=== PATIENT | female | born 1960 | race Caucasian/White ===

== ENCOUNTER 2025-03-04 09:25 | Day surgery (SDC) | payer OTHER ==
[~2025-03-04] VITALS: Ht 170.2 cm; Wt 74.0 kg
[~2025-03-04 09:25] MED LIST: IBLOOD GLUCOSE TEST STRIP 1 EA TEST VI PRN; LACTATED RINGER'S 1,000 ML IV SCH; LIDOCAINE HCL 1% 5 ML SDV INJ ONE; LIDOCAINE HCL 2% 5 ML SDV ONE
[2025-03-04 09:43] VITALS: BP 151/79
--- NOTE | 2025-03-04 11:24 | NUR ---
03/04/25 1124 Elisa Triplett 1118: PT ARRIVES TO PACU NON AROUSAL. REPORT RECEIVED FROM RECLAMATION WORKER AND ELECTRIC RANGE PREPARER.
[2025-03-04 11:43] VITALS: BP 133/81
--- NOTE | 2025-03-06 12:43 | PATH ---
[facility] [address] [facility] [place], [place] [address] Signed SPECIMEN(S): A COLON POLYP, 15 CM SPECIMEN(S): B RECTAL POLYP, 5 CM SPECIMEN(S): C RECTAL POLYP, 2 CM SPECIMEN(S): D COLON POLYP, 16 CM SPECIMEN(S): E COLON POLYP, 19 CM SPECIMEN(S): F COLON POLYP, 18 CM SPECIMEN(S): G COLON POLYP, 11 CM SPECIMEN(S): H COLON POLYP, 10 CM SPECIMEN SOURCE: A. COLON POLYP, 15 CM B. RECTAL POLYP, 5 CM C. RECTAL POLYP, 2 CM D. COLON POLYP, 16 CM E. COLON POLYP, 19 CM F. COLON POLYP, 18 CM G. COLON POLYP, 11 CM H. COLON POLYP, 10 CM CLINICAL HISTORY: Preop-positive Cologuard. Postop-polyps A-H) polyp FINAL PATHOLOGIC DIAGNOSIS: A. Colon polyp, 15 cm: - Rectal prolapse polyp, negative for dysplasia. B. Rectal polyp, 5 cm - Hyperplastic polyp, negative for dysplasia. C. Rectal polyp, 2 cm - Rectal prolapse polyp, negative for dysplasia. D. Colon polyp, 16 cm - Hyperplastic polyp, negative for dysplasia. E. Colon polyp, 19 cm - Hyperplastic polyp, negative for dysplasia. F. Colon polyp, 18 cm - Hyperplastic polyp, negative for dysplasia. G. Colon polyp, 11 cm - Hyperplastic polyp, negative for dysplasia. H. Colon polyp, 10 cm - Hyperplastic polyp, negative for dysplasia. NA PATIENT NAME: MARLENA ROJAS PATHOLOGY DATE OF : 56 REPORT #: [id number] PHYSICIAN: BRUNO FLORES PCP: LIV HERRERA MD REPORT IS CONFIDENTIAL AND NOT TO BE RELEASED WITHOUT AUTHORIZATION [facility] [address] [place], [place] [address] Signed MICROSCOPIC EXAMINATION: Histologic sections of all submitted blocks are examined by light microscopy. These findings, together with the gross examination, support the pathologic diagnosis. GROSS DESCRIPTION: A. The specimen, labeled and designated "Jose Alfredo, colon polyp, 15 cm," is received in formalin and consists of four drummond soft tissue fragments, ranging from 0.3-0.7 cm. Entirely submitted in (A1). B. The specimen, labeled and designated "Jose Alfredo, rectal polyp, 5 cm," is received in formalin and consists of two drummond soft tissue fragments, ranging from 0.1-0.3 cm. Entirely submitted in (B1). C. The specimen, labeled and designated "Jose Alfredo, rectal polyp, 2 cm," is received in formalin and consists of three drummond soft tissue fragments, ranging from 0.1-0.3 cm. Entirely submitted in (C1). D. The specimen, labeled and designated "Jose Alfredo, colon polyp, 16 cm," is received in formalin and consists of one drummond soft tissue fragment, 0.2 cm. Entirely submitted in (D1). E. The specimen, labeled and designated "Jose Alfredo, colon polyp, 19 cm," is received in formalin and consists of one drummond soft tissue fragment, 0.2 cm. Entirely submitted in (E1). F. The specimen, labeled and designated "Jose Alfredo, colon polyp, 18 cm," is received in formalin and consists of two drummond soft tissue fragments, ranging from 0.2-0.6 cm. Entirely submitted in (F1). G. The specimen, labeled and designated "Jose Alfredo, colon polyp, 11 cm," is received in formalin and consists of five drummond soft tissue fragments, ranging from 0.1-0.3 cm. Entirely submitted in (G1). H. The specimen, labeled and designated "Jose Alfredo, colon polyp, 10 cm," is received in formalin and consists of two drummond soft tissue fragments, ranging from 0.2-0.3 cm. Entirely submitted in (H1). AB (under the direct supervision of a pathologist) The Gross Description was prepared using a voice recognition system. The report was reviewed for accuracy; however, sound-alike word errors, addition and/or deletions may occur. If there is any question about this report, please contact Client Services. ADDITIONAL NOTES: Immunohistochemical and/or in situ hybridization studies if performed in this case included appropriate positive controls that reacted as expected. This test was developed and its performance PATIENT NAME: MARLENA ROJAS PATHOLOGY DATE OF : 56 REPORT #: [id number] PHYSICIAN: BRUNO PATHOLOGY PCP: LIV HERRERA MD REPORT IS CONFIDENTIAL AND NOT TO BE RELEASED WITHOUT AUTHORIZATION [address] [address] Signed characteristics determined by [facility]. It has not been cleared or approved by the U.S. Food and Drug Administration. The FDA has determined that such clearance or approval is not necessary. This test is used for clinical purposes. It should not be regarded as investigational or for research. [facility] is certified under the Clinical Laboratory Improvement Amendments of 1988 (CLIA) as qualified to perform high complexity clinical laboratory testing. PERFORMING LABORATORY: Technical [place] [address] (CLIA# [id number]). Professional interpretation was performed by [facility], [address] [place] [address] (CLIA#: [id number]). Diagnostician: Rasta Ott MD Pathologist Electronically Signed 03/06/2025 Copies: ~ PATIENT NAME: MARLENA ROJAS PATHOLOGY DATE OF : 56 REPORT #: [id number] PHYSICIAN: BRUNO FLORES PCP: LIV HERRERA MD REPORT IS CONFIDENTIAL AND NOT TO BE RELEASED WITHOUT AUTHORIZATION
== END 2025-03-04 11:57 | disposition home or self-care (01) ==
LOC: DS 09:25 → OPS 09:25 → DS 11:00 → OPS 11:00
PROVIDERS: ATTEND Surgery
PROC: 0DBE8ZX Excision of Large Intestine, Via Natural or Artificial Opening Endoscopic, Diagnostic (ICD-10-PCS; principal; 2025-03-04 10:20)
DX: R19.5 Other fecal abnormalities (principal); K63.5 Polyp of colon; I10 Essential (primary) hypertension; E78.5 Hyperlipidemia, unspecified; Z79.899 Other long term (current) drug therapy
CPT/HCPCS: 00811; 77065; 88305; J2003; J2704; J7121

== ENCOUNTER 2025-03-24 06:51 | Day surgery (SDC) | payer OTHER ==
[~2025-03-24] VITALS: Ht 170.2 cm; Wt 74.0 kg
[~2025-03-24 06:51] MED LIST changes: -IBLOOD GLUCOSE TEST STRIP 1 EA TEST VI PRN; -LIDOCAINE HCL 1% 5 ML SDV INJ ONE; -LIDOCAINE HCL 2% 5 ML SDV ONE
[2025-03-24] MEDS ORDERED: CEFAZOLIN SODIUM 2 GM in SODIUM CHLORIDE 0.9% 100 ML IV SCH (07:00)
[2025-03-24] MEDS ORDERED: LIDOCAINE HCL 1% 5 ML SDV INJ ONE (07:00)
[2025-03-24] MEDS ORDERED: IBLOOD GLUCOSE TEST STRIP 1 EA TEST VI PRN ×2 (07:00→10:00)
[2025-03-24] MEDS ORDERED: HEParin SOD (PORCINE) 5,000 UNIT/ML SDV SUB-Q SCH (07:00)
[2025-03-24 07:11] VITALS: BP 155/79
[2025-03-24] MEDS ORDERED: Methylene Blue 100 MG/10 ML SDV ONE (08:43)
[2025-03-24] MEDS ORDERED: fentaNYL citrate 100 MCG/2 ML VIAL ONE ×2 (08:44→09:52)
[2025-03-24] MEDS ORDERED: LIDOCAINE HCL 2% 5 ML SDV ONE (08:47)
[2025-03-24] MEDS ORDERED: DEXAMETHASONE SOD PHOS 4 MG/ML VIAL ONE (09:20)
[2025-03-24] MEDS ORDERED: ACETAMINOPHEN 1,000 MG/100 ML VIAL ONE (09:23)
[2025-03-24] MEDS ORDERED: HYDROmorphone HCL 1 MG/ML SYR IV PRN (10:00)
[2025-03-24] MEDS ORDERED: NALOXONE HCL 0.4 MG SYR IV PRN ×2 (10:00→11:00)
[2025-03-24] MEDS ORDERED: fentaNYL citrate 50 MCG/ML SDV IV PRN (10:00)
[2025-03-24] MEDS ORDERED: KETOROLAC TROMETHAMINE 30 MG/ML VIAL ONE (10:33)
--- NOTE | 2025-03-24 10:43 | NUR ---
03/24/25 1043 Elisa Triplett 1034: PT ARRIVES TO PACU NON REACTIVE. REPORT RECEIVED FROM FIELD ARTILLERY RADAR OPERATOR AND COUPON COLLECTION CLERK.
[2025-03-24] MEDS ORDERED: IBUPROFEN600 MG PO (10:57)
[2025-03-24] MEDS ORDERED: OXYCODON-ACETA1 EAC2 PO (10:57)
[2025-03-24] MEDS ORDERED: ACETAMINOPHEN500 MG PO (10:58)
[2025-03-24] MEDS ORDERED: IBUPROFEN 600 MG TAB PO PRN (11:00)
[2025-03-24] MEDS ORDERED: OXYCODONE/APAP 7.5/325 TAB PO PRN (11:00)
[2025-03-24] MEDS ORDERED: ACETAMINOPHEN 500 MG TAB PO PRN (11:00)
[2025-03-24] MEDS ORDERED: LACTATED RINGER'S 1,000 ML IV SCH (11:00)
[2025-03-24 11:10] VITALS: BP 131/75
[2025-03-24] MEDS ORDERED: SEVOFLURANE 250 ML BTL INH ONE (11:20)
--- NOTE | 2025-03-24 11:57 | NUR ---
CLARE 1110-PT BACK TO ROOM FROM PACU ON . RECEIVED REPORT FROM TOMMIE GARZA. PT IS AWAKE. RESP EVEN AND UNLABORED. RATES PAIN 4/10. DENIES NAUSEA. PT DRINKING WATER. JELLO PROVIDED. NO OTHER NEEDS AT THIS TIME. CALL LIGHT WITHIN REACH.
--- NOTE | 2025-03-24 11:59 | NUR ---
1150-PT AMBULATES TO RESTROOM. PT ABLE TO VOID.
--- NOTE | 2025-03-24 12:01 | NUR ---
1154-PT BACK TO BED. RATES PAIN 3/10 AND WOULD LIKE SOMETHING BEFORE GOING HOME. PAIN MEDICATION GIVEN PER EMAR.
[2025-03-24 12:14] VITALS: BP 137/81
--- NOTE | 2025-03-24 13:15 | NUR ---
CLARE 1215-PT LAYING IN BED. RESP EVEN AND UNLABORED. PT STATES PAIN IS MUCH BETTER. DENIES NAUSEA. PT TAKING SIPS OF WATER. PT IS READY TO GO HOME. PT WILL GET DRESSED. IN ROOM. CALL LIGHT WITHIN REACH.
--- NOTE | 2025-03-24 13:16 | NUR ---
LE 1222-WENT OVER DISCHARGE INSTRUCTIONS WITH PT. WENT OVER POSTOP MEDICATIONS. ALL QUESTIONS ANSWERED. LE 1226-PT AMBULATES TO WHEELCHAIR AND RIDE PROVIDED TO FRONT OF HOSPITAL WHERE HER WAS WAITING WITH THE CAR.
--- NOTE | 2025-03-25 14:52 | OR ---
[facility] [address] [place], [place] [address] Signed DATE OF OPERATION: 03/24/2025 SURGEON: Elizabeth Bo MD PREOPERATIVE DIAGNOSIS: Right upper outer quadrant infiltrating ductal breast carcinoma, ER/AZ positive, HER-2/saba negative, moderately differentiated. POSTOPERATIVE DIAGNOSIS: Right upper outer quadrant infiltrating ductal breast carcinoma, ER/AZ positive, HER-2/saba negative, moderately differentiated. PROCEDURES: 1. Injection of methylene blue dye for sentinel lymph node identification, right breast. 2. Right deep axillary sentinel lymph node biopsy (x3). 3. Right partial mastectomy with NATI yard laborer localization. ANESTHESIA: General LMA, Leonardo Lebron CRNA and local 7 mL of 0.25% Marcaine with epinephrine. INDICATION: This 64-year-old white woman is a patient of Aurora Herrera. The patient lives in [place], [place]. She is identified as having an abnormality of her right breast in the upper outer aspect. Further evaluation including biopsies showed infiltrating ductal breast carcinoma, ER/AZ positive, HER-2/saba negative. It is moderately differentiated. It is nonpalpable. She is admitted at this time to undergo definitive treatment to include right partial mastectomy by NATI yard laborer localization and right sentinel lymph node biopsies to better guide therapy. The risk of bleeding, infection, cosmetic deformity, and other unforeseen complications were reviewed in detail. She understands and wished to proceed. FINDINGS: Good localization was noted with the NATI yard laborer device. The lesion was in the upper outer aspect. Wide resection was undertaken using the NATI yard laborer technique and the excised specimen had the NATI yard laborer implement as well as the localizing clip in the center portion of the excised specimen according to the radiologist. Good cosmesis was noted following wide resection with parenchymal reapproximation. Note that the biopsy cavity was secured with clips for guidance of radiation therapy in the future. As regards to the right axilla, uptake of blue dye was noted in the initial sentinel Electronically Signed By: ELIZABETH BO MD 03/25/25 1452 PATIENT NAME: MARLENA ROJAS OPERATIVE REPORT DATE OF : 56 REPORT #: [id number] PHYSICIAN: ELIZABETH BO MD PCP: AURORA HERRERA MD REPORT IS CONFIDENTIAL AND NOT TO BE RELEASED WITHOUT AUTHORIZATION [facility] [address] [place] [id number] Signed lymph node in addition to radionuclide and two other radionuclide avid small lymph nodes were also identified. A total of three sentinel nodes were excised. None of them appeared suspicious. DESCRIPTION OF PROCEDURE: The patient was taken to the operating room after affirming the NATI yard laborer device was working well in localizing the lesion in the right upper aspect of the breast. She was given a general LMA type anesthetic. Preoperative antibiotic Ancef was given and sequential compression device stockings were used. Injection of 1 mL of 50% methylene blue dye was undertaken in the upper outer aspect of the right breast showing typical lymphatic uptake. The breast, chest, and axilla was then prepared with a chlorhexidine solution and draped sterilely. The NATI yard laborer probe as well as the C-Trak radionuclide probe were covered with the respective sterile sheaths. Attention was turned to the axilla first. An area of high radioactivity uptake was identified in the axilla and a small transverse incision was made there. Using cautery, the parenchyma and dermis were divided down into the area of the axillary fat. Meticulous dissection identified promptly a blue lymph node with the radionuclide uptake having used the probe to better localize the lymph node. This was dissected free and small clips were applied and it was removed and passed the sentinel lymph node #1. Two additional lymph nodes were identified in a similar way, though neither took up too much dye, but certainly took up radionuclide. The remaining axilla was relatively silent and showed no sign of methylene blue uptake elsewhere. The wound of the axilla was then packed with laparotomy pack. Attention was turned towards the breast itself. The localizing NATI yard laborer probe showed the lesion to be in the upper outer aspect. It was not near enough to breast crease of the axilla to take advantage of that approach for resection nor was it close enough to the areolar margin to reasonably expect it to be excised there very well. On that basis, the incision was centered directly over the upper outer aspect of the right breast. Dissection was carried through the skin sharply and with electrocautery the dermis was divided. Wide resection was undertaken with electrocautery using the NATI yard laborer probe as a guide. Special care was taken to make the excision wide around the focus of the NATI yard laborer signal. Excision was taken down to the pectoralis fascia essentially. Once excised, the specimen was oriented with a stitch superiorly, which was short and a long stitch laterally. Irrigation was undertaken in the breast cavity with sterile water showing no untoward bleeding. Clips were used to jose the excision site for radiation therapy. The parenchyma was reapproximated with interrupted 2-0 Vicryl with reasonable cosmesis. The deep dermal layer was similarly reapproximated with 2-0 Vicryl and a running subcuticular 3-0 Vicryl was used for the skin. Steri-Strips were applied. Examination of the axilla showed it to be hemostatic. By this point, the specimen radiograph confirmed that the NATI yard laborer and the tumor marker were noted to be in the central portion of the excised specimen. The skin was closed in Electronically Signed By: ELIZABETH BO MD 03/25/25 1452 PATIENT NAME: MARLENA ROJAS OPERATIVE REPORT DATE OF : 56 REPORT #: [id number] PHYSICIAN: ELIZABETH BO MD PCP: AURORA HERRERA MD REPORT IS CONFIDENTIAL AND NOT TO BE RELEASED WITHOUT AUTHORIZATION [facility] [address] [place], [place] [address] Signed the axilla with a running 3-0 Vicryl and Steri-Strips were applied to both wounds and Acticoat dressings applied as well. She was ultimately extubated and transferred to the recovery room in good condition having suffered no complication. Total blood loss was less than 20 mL in aggregate. Sponge, needle, and instrument counts reported as correct x3. MD REGGIE Venegas/ELANAL /[id number] cc: Aurora Herrera MD [place] Copies: ~ Electronically Signed By: ELIZABETH BO MD 03/25/25 1452 PATIENT NAME: MARLENA ROJAS OPERATIVE REPORT DATE OF : 56 REPORT #: [id number] PHYSICIAN: ELIZABETH BO MD PCP: AURORA HERRERA MD REPORT IS CONFIDENTIAL AND NOT TO BE RELEASED WITHOUT AUTHORIZATION
--- NOTE | 2025-03-27 14:56 | PATH ---
[facility] [address] [facility] [place], [place] [address] Signed SPECIMEN(S): A RIGHT AXILLA SENTINEL LYMPH NODE #1 SPECIMEN(S): B RIGHT AXILLA SENTINEL LYMPH NODE #2 SPECIMEN(S): C RIGHT AXILLA SENTINEL LYMPH NODE #3 SPECIMEN(S): D RIGHT BREAST SPECIMEN SOURCE: A. RIGHT AXILLA SENTINEL LYMPH NODE #1 B. RIGHT AXILLA SENTINEL LYMPH NODE #2 C. RIGHT AXILLA SENTINEL LYMPH NODE #3 D. RIGHT BREAST CLINICAL HISTORY: Cancer of overlapping breast sites, right upper outer quadrant breast ca FINAL PATHOLOGIC DIAGNOSIS: A. [place] lymph node #1, right axilla per requisition: - One lymph node negative for metastatic carcinoma (0/1). B. [place] lymph node #2, right axilla per requisition: - Benign adipose and fibrovascular tissue, negative for lymph node or metastatic carcinoma. C. [place] lymph node #3, right axilla per requisition: - One lymph node, negative for metastatic carcinoma (0/1). D. Right breast, lumpectomy: - Invasive carcinoma of no special type (ductal). - See checklist. INVASIVE CARCINOMA OF THE BREAST: Resection Applies To: Specimens A-D. SPECIMEN Procedure: Excision (less than total mastectomy) Specimen Laterality: Right TUMOR Histologic Type: Invasive carcinoma of no special type (ductal) Glandular (Acinar) / Tubular Differentiation: Score 2 Nuclear Pleomorphism: Score 2 Mitotic Rate: Score 1 Overall Grade: Grade 1 (scores of 3, 4 or 5) Tumor Size: Greatest dimension of largest invasive focus (Millimeters) - 12 x 11 x 7 mm Ductal Carcinoma In Situ (DCIS): Present Size (Extent) of DCIS: Estimated size (extent) of DCIS is at least PATIENT NAME: MARLENA VELIZ PATHOLOGY DATE OF : 56 REPORT #: [id number] PHYSICIAN: BRUNO PATHOLOGY PCP: LIV HERRERA MD REPORT IS CONFIDENTIAL AND NOT TO BE RELEASED WITHOUT AUTHORIZATION [facility] [address] [place], [place] [address] Signed (Millimeters) - 8 x 6 x 4 mm Architectural Patterns: Cribriform Nuclear Grade: Grade II (intermediate) Necrosis: Not identified Lymphatic and / or Vascular Invasion: Not identified Treatment Effect in the Breast: No known presurgical therapy MARGINS Margin Status for Invasive Carcinoma: All margins negative for invasive carcinoma Distance from Invasive Carcinoma to Closest Margin: 7 mm Closest Margin(s) to Invasive Carcinoma: Anterior Margin Status for DCIS: All margins negative for DCIS Distance from DCIS to Closest Margin: 7 mm Closest Margin(s) to DCIS: Anterior REGIONAL LYMPH NODES Regional Lymph Node Status: All regional lymph nodes negative for tumor Total Number of Lymph Nodes Examined (sentinel and non-sentinel): 2 Number of [place] Nodes Examined: 2 pTNM CLASSIFICATION (AJCC 8th Edition) pT Category: pT1c pN Category: pN0 N Suffix: (sn) ADDITIONAL FINDINGS Additional Findings: Biopsy site changes with radiographic marking clip. Fibrocystic changes with apocrine metaplasia. Breast Biomarker Testing Performed on Previous Biopsy: Estrogen Receptor (ER) Status: Positive (greater than 10% of cells demonstrate nuclear positivity) Progesterone Receptor (PgR) Status: Positive HER2 (by immunohistochemistry): Equivocal (Score 2+) HER2 (by in situ hybridization): Negative (not amplified) Testing Performed on Case Number: [id number] JOHNNY MICROSCOPIC EXAMINATION: Histologic sections of all submitted blocks are examined by light microscopy. These findings, together with the gross examination, support the pathologic diagnosis. GROSS DESCRIPTION: A. The specimen, labeled and designated "Sherice Veliz, sentinel lymph node #1, PATIENT NAME: MARLENA VELIZ PATHOLOGY DATE OF : 56 REPORT #: [id number] PHYSICIAN: BRUNO FLORES PCP: LIV HERRERA MD REPORT IS CONFIDENTIAL AND NOT TO BE RELEASED WITHOUT AUTHORIZATION [facility] [address] [place], [place] [address] Signed right axilla per requisition," is received in formalin and consists of a 1.8 x 1.5 x 0.6 cm portion of yellow lobulated fibroadipose tissue. The specimen is palpated revealing a 1 cm in greatest dimension blue dyed lymph node. The specimen is serially sectioned and entirely submitted in cassette A1. B. The specimen, labeled and designated "Sherice Veliz, sentinel lymph node #2, right axilla per requisition," is received in formalin and consists of a 2.3 x 1.9 x 0.7 cm aggregate of yellow lobulated fibroadipose tissue. The specimen is palpated revealing no discrete lymph node candidates. The specimen is entirely submitted in cassette B1. C. The specimen, labeled and designated "Sherice Veliz, sentinel lymph node #3, right axilla per requisition," is received in formalin and consists of a 1.8 x 1.5 x 0.6 cm portion of yellow lobulated fibroadipose tissue. The specimen is palpated revealing a single lymph node candidate measuring 0.7 cm in greatest dimension. The specimen is bisected and entirely submitted in cassette C1. D. The specimen, labeled and designated "Sherice Veliz, right breast cancer per requisition," is received in formalin and consists of a 51 g, 7.6 cm medial to lateral, 6.5 cm superior to inferior, 2.4 cm anterior to posterior portion of yellow lobulated fibroadipose tissue. The specimen is oriented as follows: Superior�Short stitch, lateral�long stitch. The specimen is subsequently inked as follows: Superior�blue, inferior�green, posterior�black, anterior�yellow, medial�red, lateral�orange. The specimen is serially sectioned from medial to lateral in 15 slices. In slices 4 through 6 there is a 1.2 x 1.1 x 0.7 cm drummond-white well-circumscribed mass that is 0.8 cm away from the anterior margin, 1 cm away from the posterior margin, and greater than 1 cm away from all remaining margins. A biopsy clip is identified within the mass within slice 6. There is diffuse hemorrhage in slice 2 through 6 adjacent to the mass. There are no additional areas of hemorrhage present. The background parenchyma is comprised of 60% yellow lobulated adipose tissue and 30% white-pink fibrous tissue. Surveillance Operator sections are submitted as follows: Cassette Summary: (D1) slice 1, medial margin, serially section (D2-D3) slice 2 (D4-D5) slice 3 (D6-D8) slice 4 with mass (D9-D11) slice 5 with mass PATIENT NAME: BOBMARLENA SALDIVAR PATHOLOGY DATE OF : 56 REPORT #: [id number] PHYSICIAN: BRUNO PATHOLOGY PCP: LIV HERRERA MD REPORT IS CONFIDENTIAL AND NOT TO BE RELEASED WITHOUT AUTHORIZATION [facility] [address] [place], [place] [address] Signed (D12-D14) slice 6 with mass (D15-D17) slice 7 (D18-D20) slice 12 (D21-D22) slice 15, lateral margin, serially sectioned Time of collection: 10:01 AM 03/24/2025. Time into formalin: 10:23 AM 03/24/2025. Processor load time: 6 PM 03/25/2025. Ischemic time: 22 minutes Total fixation time in formalin: 31 hours 37 minutes The ASCO/CAP guidelines related to HER2 and hormone receptor testing in breast specimens have been met and the specimen has been placed in formalin within one hour and fixed in 10% neutral buffered formalin for 6 to 72 hours. AA (under the direct supervision of a pathologist) The Gross Description was prepared using a voice recognition system. The report was reviewed for accuracy; however, sound-alike word errors, addition and/or deletions may occur. If there is any question about this report, please contact Client Services. ADDITIONAL NOTES: Immunohistochemical and/or in situ hybridization studies if performed in this case included appropriate positive controls that reacted as expected. This test was developed and its performance characteristics determined by [facility]. It has not been cleared or approved by the U.S. Food and Drug Administration. The FDA has determined that such clearance or approval is not necessary. This test is used for clinical purposes. It should not be regarded as investigational or for research. [facility] is certified under the Clinical Laboratory Improvement Amendments of 1988 (CLIA) as qualified to perform high complexity clinical laboratory testing. PERFORMING LABORATORY: Technical component was performed by [facility], [address] [place] [address] (CLIA# [id number]). Professional interpretation was performed by [facility] - [address] [place] [address] (CLIA#: [id number]). Diagnostician: Aj Monterroso MD Pathologist Electronically Signed 03/27/2025 PATIENT NAME: BOBMARLENA PATHOLOGY DATE OF : 56 REPORT #: [id number] PHYSICIAN: BRUNO PATHOLOGY PCP: LIV HERRERA MD REPORT IS CONFIDENTIAL AND NOT TO BE RELEASED WITHOUT AUTHORIZATION [facility] [address] [place], [place] [address] Signed Copies: ~ PATIENT NAME: BOBMARLENA OBRIEN PATHOLOGY DATE OF : 56 REPORT #: [id number] PHYSICIAN: BRUNO PATHOLOGY PCP: LIV HERRERA MD REPORT IS CONFIDENTIAL AND NOT TO BE RELEASED WITHOUT AUTHORIZATION
== END 2025-03-24 12:26 | disposition home or self-care (01) ==
LOC: DS 06:51 → EDSTATUS 08:00 → NUC 08:00 → DS 12:26
PROVIDERS: ATTEND Surgery
PROC: 0HBT0ZZ Excision of Right Breast, Open Approach (ICD-10-PCS; principal; 2025-03-24 08:45)
DX: C50.811 Malignant neoplasm of overlapping sites of right female breast (principal); Z17.0 Estrogen receptor positive status [ER+]; Z17.21 Progesterone receptor positive status; Z17.32 Human epidermal growth factor receptor 2 negative status; Z87.891 Personal history of nicotine dependence
CPT/HCPCS: 00400; 76098; 77065; 78195; 88305; 88307; A9541; J0131; J0688; J1100; J1644; J1885; J2003; J2405; J2704; J3010; J3490; J7121

== ENCOUNTER 2025-04-28 06:56 | Day surgery (SDC) | payer OTHER ==
[~2025-04-28] VITALS: Ht 170.2 cm; Wt 74.0 kg
[~2025-04-28 06:56] MED LIST changes: +ACETAMINOPHEN500 MG PO; +IBUPROFEN600 MG PO; +OXYCODON-ACETA1 EAC2 PO
[2025-04-28] MEDS ORDERED: IBLOOD GLUCOSE TEST STRIP 1 EA TEST VI PRN (07:00)
[2025-04-28] MEDS ORDERED: LIDOCAINE HCL 1% 5 ML SDV INJ ONE (07:00)
[2025-04-28 07:08] VITALS: BP 136/98
[2025-04-28] MEDS ORDERED: LIDOCAINE HCL 2% 5 ML SDV ONE (08:54)
[2025-04-28] MEDS ORDERED: GLUCAGON,HUMAN RECOMBINANT 1 MG/ML VIAL ONE ×2 (09:19→10:44)
[2025-04-28] MEDS ORDERED: DEXAMETHASONE SOD PHOS 4 MG/ML VIAL ONE ×2 (09:44→10:41)
[2025-04-28] MEDS ORDERED: fentaNYL citrate 100 MCG/2 ML VIAL ONE (09:50)
[2025-04-28] MEDS ORDERED: ROCURONIUM BROMIDE 50 MG/5 ML SYR ONE (10:20)
[2025-04-28] MEDS ORDERED: PHENYLEPHRINE HCL IN 0.9% NACL 1 MG/10 ML SYR ONE (10:34)
[2025-04-28] MEDS ORDERED: SUGAMMADEX SODIUM 200 MG/2 ML ML ONE (10:43)
[2025-04-28] MEDS ORDERED: ALBUTEROL/IPRATROPIUM 3 ML NEB INH ONE (11:30)
--- NOTE | 2025-04-28 11:31 | NUR ---
04/28/25 1131 Hansa Bolden 1121-PATIENT ARRIVED TO PACU ON 8L MASK RR EVEN HOB ELEVATED NONAROUSABLE. ABDOMEN SOFT. IVF INFUSING. O2 SAT 95% PLACED ON 6L MASK. AUSCULTATED LUNGS CLEAR. SR HR 90'S 1126-NEW ORDER RECEIVED FROM ELIZABETH MERCADO FOR DUONEB TREATMENT PATIENT WILL COUGH 6L MASK 91-93% RR EVEN.
[2025-04-28] MEDS ORDERED: AMP/SULBACTAM SOD 3 GM in SODIUM CHLORIDE 0.9% 100 ML IV ONE (12:45)
--- NOTE | 2025-04-28 12:50 | NUR ---
PT ARRIVES TO DS FROM PACU VIA STRETCHER. PT IS A&O, ASKING APPROPRIATE QUESTIONS, ON RA W/O2 >90%. RESPIRATIONS EVEN AND UNLABORED, NO SIGNS OF DISTRESS. PT OCCASIONAL PRODUCTIVE COUGH, ABLE TO CLEAR WITHOUT DIFFICULTY. REPORT RECEIVED FROM MARTA GARZA. PT AT BEDSIDE. YUMIKO GILL AT BEDSIDE DISCUSSING PROCEDURE AND ANSWERING ALL QUESTIONS FROM PT AND PT AT THIS TIME. CALL LIGHT WITHIN REACH. ABX INFUSING DIRECTED.
[2025-04-28 13:06] VITALS: BP 131/68
--- NOTE | 2025-04-28 13:20 | NUR ---
PT TO RESTROOM. THIS RN STANDBY ASSIST. PT NOW BACK IN BED. DC EDUCATION DISCUSSED WITH PT AND PT . BOTH STATE VERBAL UNDERSTANDING AND NO FURTHER QUESTIONS OR NEEDS AT THIS TIME.
[2025-04-28 13:40] VITALS: BP 139/69
--- NOTE | 2025-04-28 13:50 | NUR ---
IV DC'ED BY RADHA MATA, RADHA/ANGELITO IN PLACE. PT OFF OF UNIT VIA WC BY RADHA MATA. ALL BELONGINGS IN PT POSSESSION AT THIS TIME. PT REPORTS NO FURTHER NEEDS OR QUESTIONS AT THIS TIME.
--- NOTE | 2025-04-28 15:10 | NUR ---
PT RETURNS FOR INCENTIVE SPIROMETER THAT WAS LEFT. PT STATES NO FURTHER NEEDS OR QUESTIONS.
[2025-04-28] MEDS ORDERED: SEVOFLURANE 250 ML BTL INH ONE (17:11)
== END 2025-04-28 13:50 | disposition home or self-care (01) ==
LOC: DS 06:56
PROVIDERS: ATTEND Surgery
PROC: 0DBL8ZX Excision of Transverse Colon, Via Natural or Artificial Opening Endoscopic, Diagnostic (ICD-10-PCS; 2025-04-28)
PROC: 0DBN8ZX Excision of Sigmoid Colon, Via Natural or Artificial Opening Endoscopic, Diagnostic (ICD-10-PCS; 2025-04-28)
PROC: 3E0H8KZ Introduction of Other Diagnostic Substance into Lower GI, Via Natural or Artificial Opening Endoscopic (ICD-10-PCS; 2025-04-28)
PROC: 0DBH8ZX Excision of Cecum, Via Natural or Artificial Opening Endoscopic, Diagnostic (ICD-10-PCS; principal; 2025-04-28 08:45)
DX: D12.0 Benign neoplasm of cecum (principal); K51.40 Inflammatory polyps of colon without complications; K63.5 Polyp of colon; K57.30 Diverticulosis of large intestine without perforation or abscess without bleeding; K59.00 Constipation, unspecified; R19.5 Other fecal abnormalities; E78.5 Hyperlipidemia, unspecified; K21.9 Gastro-esophageal reflux disease without esophagitis
CPT/HCPCS: 00811; 71045; J0165; J0295; J1100; J1610; J2003; J2405; J2704; J3010; J3490; J7121